=== PATIENT | male | born 1990 | race African-American/Black ===

== ENCOUNTER 2016-10-13 14:52 | Emergency (ER) | payer SELFPAY ==
[~2016-10-13] VITALS: Ht 193 cm; Wt 113.4 kg
[2016-10-13 14:57] VITALS: BP 116/58
[2016-10-13] MEDS ORDERED: CYCL10TA2 PO (15:32)
[2016-10-13] MEDS ORDERED: HYDR-971 PO (15:32)
[2016-10-13] MEDS ORDERED: METH4TAB2 PO (15:32)
--- NOTE | 2016-10-13 15:32 | PHYS DOC ---
Past Medical History Past Medical History: Other Additional Past Medical Histor: HERNIATED DISC Past Surgical History: No Surgical History Alcohol Use: Occasionally Drug Use: None Adult General Chief Complaint Chief Complaint: BACK PAIN - NO INJURY HPI HPI Patient is a 26 year old male with history of herniated disks who presents today with moderate low back pain radiating into the left lower extremity that began 2 or 3 days ago. Patient denies any trauma. Denies any loss of bowel bladder function. He states he has been taking naproxen with no relief. Review of Systems Review of Systems Constitutional: Denies fever or chills [] Eyes: Denies change in visual acuity, redness, or eye pain [] HENT: Denies nasal congestion or sore throat [] Musculoskeletal: Low back pain Integument: Denies rash or skin lesions [] Neurologic: Denies headache, focal weakness or sensory changes [] Endocrine: Denies polyuria or polydipsia [] Allergies Allergies Allergies Coded Allergies Type Severity Reaction Last Updated Verified Penicillins Allergy Intermediate 10/13/16 Yes Physical Exam Physical Exam Constitutional: Well developed, well nourished, no acute distress, non-toxic appearance. [] HENT: Normocephalic, atraumatic, bilateral external ears normal, oropharynx moist, no oral exudates, nose normal. [] Eyes: PERRLA, EOMI, conjunctiva normal, no discharge. [] Abdomen: Bowel sounds normal, soft, no tenderness, no masses, no pulsatile masses. [] Skin: Warm, dry, no erythema, no rash. [] Back: Diffuse paraspinal muscle tenderness to the lumbar region worse on the left SI joint, no midline lumbar spine tenderness, no CVA tenderness. [] Extremities: No tenderness, no cyanosis, no clubbing, ROM intact, no edema. [] Neurologic: Alert and oriented X 3, normal motor function, normal sensory function, no focal deficits noted. [] Psychologic: Affect normal, judgement normal, mood normal. [] Current Patient Data Vital Signs Vital Signs Date Time Temp Pulse Resp B/P (MAP) Pulse Ox O2 Delivery O2 Flow Rate FiO2 10/13/16 14:57 98.4 78 16 95 Room Air 98.4 EKG EKG [] Radiology/Procedures Radiology/Procedures [] Course & Med Decision Making Course & Med Decision Making Pertinent Labs and Imaging studies reviewed. (See chart for details) Patient has bilateral low back pain with sciatica, he has history of herniated disks. He has been taking naproxen with no relief. He will be discharged with Flexeril and Medrol Dosepak and hydrocodone. Provided him a doctor's list for follow-up in 1-2 weeks. Dragon Disclaimer Dragon Disclaimer This electronic medical record was generated, in whole or in part, using a voice recognition dictation system. Departure Departure Impression: Primary Impression: Low back pain Additional Impression: Left sciatic nerve pain Disposition: HOME, SELF-CARE Condition: STABLE Referrals: NO PCP (PCP) Follow-up with your doctor in one week Patient Instructions: Back Pain, Adult, Sciatica, [id number] Additional Instructions: You were seen for low back pain with sciatica. Take the prescribed medicines as ordered. Follow-up with your doctor in 1-2 weeks. If you do not have a doctor select one from the list provided. Come back to the ED at any point symptoms worsen especially if you have any loss of bowel bladder function. Scripts Cyclobenzaprine Hcl (CYCLOBENZAPRINE HCL) 10 Mg Tablet 1 TAB PO TID, #30 TAB Prov: RENATO ROWELL APRN 10/13/16 Hydrocodone/Apap 5-325 (NORCO 5-325 TABLET) 1 Each Tablet 1-2 TAB PO Q4-6HRS, #14 TAB Prov: RENATO ROWELL APRN 10/13/16 Methylprednisolone (MEDROL) 4 Mg Tab.ds.pk 1 PKG PO UD, #1 PKG Prov: RENATO ROWELL APRN 10/13/16 Problem Qualifiers Primary Impression: Low back pain Chronicity: acute Back pain laterality: bilateral Sciatica presence: with sciatica Sciatica laterality: sciatica of left side Qualified Codes: M54.42 - Lumbago with sciatica, left side KIAHJORJERENATO BELL Oct 13, 2016 15:32
[2016-10-13] MEDS ORDERED: CYCLOBENZAPRINE 10 MG TABLET. PO ONE (15:45)
[2016-10-13] MEDS ORDERED: HYDROcodone/APAP 5/325MG 1 TAB TABLET PO ONE (15:45)
== END 2016-10-13 15:40 | disposition home or self-care (01) ==
LOC: ER 14:52
DX: M54.42 Lumbago with sciatica, left side (principal); M79.662 Pain in left lower leg; Z88.0 Allergy status to penicillin
CPT/HCPCS: 99283

== ENCOUNTER 2018-08-31 02:08 | Emergency (ER) | payer SELFPAY ==
[~2018-08-31] VITALS: Ht 193 cm; Wt 117.9 kg
[~2018-08-31 02:08] MED LIST: CYCL10TA2 PO; HYDR-3164 PO; METH4TAB2 PO
--- NOTE | 2018-08-31 02:40 | PHYS DOC ---
Past Medical History Past Medical History: Other Additional Past Medical Histor: HERNIATED DISC Past Surgical History: No Surgical History Alcohol Use: Occasionally Drug Use: None Adult General HPI HPI Patient is a 27 year old M who was brought in after being found unconscious in a parking lot in a car. He was given 3mg Narcan prior to arrival. Unable to obtain more history due to patients mental status, Review of Systems Review of Systems Unable to obtain due to patients mental status Allergies Allergies Allergies Coded Allergies Type Severity Reaction Last Updated Verified Penicillins Allergy Intermediate 10/13/16 Yes Physical Exam Physical Exam Constitutional: ill-appearing diaphoretic HENT: Normocephalic, atraumatic, bilateral external ears normal, oropharynx moist, no oral exudates, nose normal. [] Eyes: Pinpoint pupils. [] Neck: Normal range of motion, no tenderness, supple, no stridor. Cardiovascular:Heart rate regular rhythm, no murmur [] Lungs & Thorax: Bilateral breath sounds clear to auscultation [] Abdomen: Bowel sounds normal, soft, no tenderness, no masses, no pulsatile masses. [] Skin: Diaphoretic. Back: No tenderness, no CVA tenderness. Extremities: No tenderness, no cyanosis, no clubbing, ROM intact, no edema. [] Neurologic: GSC [id number], grossly moving all extremities. [] Psychologic: Unable to obtain due to patients mental status. [] Current Patient Data Vital Signs Vital Signs Date Time Temp Pulse Resp B/P (MAP) Pulse Ox O2 Delivery O2 Flow Rate FiO2 08/31/18 03:30 97.6 79 17 111/67 (82) 92 Room Air 97.6 Lab Values Laboratory Tests Test 08/31/18 02:30 White Blood Count 13.0 x10^3/uL (4.0-11.0) H Red Blood Count 4.62 x10^6/uL (4.30-5.70) Hemoglobin 15.0 g/dL (13.0-17.5) Hematocrit 46.2 % (39.0-53.0) Mean Corpuscular Volume 100 fL (79-100) Mean Corpuscular Hemoglobin 33 pg (25-35) Mean Corpuscular Hemoglobin Concent 33 g/dL (31-37) Red Cell Distribution Width 13.1 % (11.5-14.5) Platelet Count 191 x10^3/uL (140-400) Neutrophils (%) (Auto) 83 % (31-73) H Lymphocytes (%) (Auto) 10 % (24-48) L Monocytes (%) (Auto) 6 % (0-9) Eosinophils (%) (Auto) 0 % (0-3) Basophils (%) (Auto) 0 % (0-3) Neutrophils # (Auto) 10.8 x10^3uL (1.8-7.7) H Lymphocytes # (Auto) 1.3 x10^3/uL (1.0-4.8) Monocytes # (Auto) 0.8 x10^3/uL (0.0-1.1) Eosinophils # (Auto) 0.0 x10^3/uL (0.0-0.7) Basophils # (Auto) 0.0 x10^3/uL (0.0-0.2) Sodium Level 142 mmol/L (136-145) Potassium Level 3.7 mmol/L (3.5-5.1) Chloride Level 103 mmol/L (98-107) Carbon Dioxide Level 27 mmol/L (21-32) Anion Gap 12 (6-14) Blood Urea Nitrogen 19 mg/dL (8-26) Creatinine 1.5 mg/dL (0.7-1.3) H Estimated GFR (Cockcroft-Gault) 69.0 BUN/Creatinine Ratio 13 (6-20) Glucose Level 232 mg/dL (70-99) H Calcium Level 8.6 mg/dL (8.5-10.1) Total Bilirubin 0.3 mg/dL (0.2-1.0) Aspartate Amino Transferase (AST) 189 U/L (15-37) H Alanine Aminotransferase (ALT) 132 U/L (16-63) H Alkaline Phosphatase 81 U/L (46-116) Total Protein 7.5 g/dL (6.4-8.2) Albumin 3.9 g/dL (3.4-5.0) Albumin/Globulin Ratio 1.1 (1.0-1.7) Ethyl Alcohol Level 10 mg/dL (0-10) Laboratory Tests 08/31/18 02:30 Laboratory Tests 08/31/18 02:30 EKG EKG Normal sinus rhythm, rate of 73, QTc 442ms[] Radiology/Procedures Radiology/Procedures [] Course & Med Decision Making Course & Med Decision Making Pertinent Labs and Imaging studies reviewed. (See chart for details) []27-year-old male who is presenting with chief complaint of drug overdose he was found unconscious in a car. He had pinpoint pupils they gave a lot of Narcan he did come out of that we observed him in the ER for a couple of hours he remained alert he was a little sleepy but he was saturating well he was ambulated with a steady gait at the time of discharge I advised to follow-up within 1 week regarding his elevated LFTs Dragon Disclaimer Dragon Disclaimer This electronic medical record was generated, in whole or in part, using a voice recognition dictation system. Departure Departure Impression: Primary Impression: Drug abuse Disposition: 01 HOME, SELF-CARE Condition: STABLE Referrals: NO PCP (PCP) ARIEL METCALF MD August 31, 2018 02:40
[2018-08-31 02:43] LABS: BASO % 0 % (0-3); EOS % 0 % (0-3); HEMATOCRIT 46.2 % (39.0-53.0); LYMPH # 1.3 x10^3/uL (1.0-4.8); LYMPH % 10 % (24-48); MEAN CORPUSCULAR HEMOGLOBIN 33 pg (25-35); MEAN CORPUSCULAR HGB CONC 33 g/dL (31-37); MEAN CORPUSCULAR VOLUME 100 fL (79-100); MONO # 0.8 x10^3/uL (0.0-1.1); MONO % 6 % (0-9); NEUT # 10.8 x10^3uL (1.8-7.7); NEUT % 83 % (31-73); PLATELET COUNT 191 x10^3/uL (140-400); RED BLOOD COUNT 4.62 x10^6/uL (4.30-5.70); RED CELL DISTRIBUTION WIDTH 13.1 % (11.5-14.5)
[2018-08-31 03:05] LABS: CALCIUM 8.6 mg/dL (8.5-10.1); CREATININE 1.5 mg/dL (0.7-1.3); POTASSIUM 3.7 mmol/L (3.5-5.1)
[2018-08-31 03:11] LABS: ALBUMIN 3.9 g/dL (3.4-5.0); ALBUMIN/GLOBULIN RATIO 1.1 (1.0-1.7); TOTAL BILIRUBIN 0.3 mg/dL (0.2-1.0); TOTAL PROTEIN 7.5 g/dL (6.4-8.2)
[2018-08-31 03:30] VITALS: BP 111/67
--- NOTE | 2018-08-31 08:21 | EKG ---
[facility] [address] [place] [address] Test Date: 2018-08-31 Test Time: 02:18:53 Pat Name: MARIA DEL CARMEN GARCIA Department: Room: Gender: M Hop Farmer: [id number] : 1990 Requested By: ARIEL METCALF Order Number: [id number] Reading MD: Bahman Mendenhall Measurements Intervals Gila Rate: 73 P: 68 CT: 168 QRS: 61 QRSD: 98 T: 30 QT: 398 QTc: 442 Interpretive Statements SINUS RHYTHM Electronically Signed On 09-22-2018 12:10:46 CDT by Bahman Mendenhall
== END 2018-08-31 04:55 | disposition home or self-care (01) ==
LOC: ER 02:08
DX: F11.10 Opioid abuse, uncomplicated (principal); R40.20 Unspecified coma; R61 Generalized hyperhidrosis; Z88.0 Allergy status to penicillin
CPT/HCPCS: 36415; 80053; 85025; 93005; 99285; G0480